=== PATIENT | male | born 1960 ===

== ENCOUNTER 2018-09-07 13:12 | Outpatient (REF) | payer MEDICAID, SELFPAY ==
[2018-09-07 21:46] LABS: HCT 43.7 % (40.0-50.0); HGB 15.2 g/dL (13.5-17.5); Mean Corp. HGB Concentration 34.8 g/dL (32.0-36.0); Mean Corpuscular Hemoglobin 32.3 pg (27.0-33.0); Mean Corpuscular Volume 92.8 fL (80-95); Mean Platelet Volume 10.4 fL (8.0-11.0); Platelet Count 243 x1000/uL (130-400); RBC 4.71 m/cumm (4.50-6.00); White Blood Cell Count 5.44 k/cumm (4.4-10.8)
[2018-09-07 22:06] LABS: Hemoglobin A1C 5.1 % (4.5-6.2)
[2018-09-07 22:34] LABS: ALT 43 U/L (12-78); AST 30 U/L (15-37); Albumin 3.9 g/dL (3.4-5.0); Alkaline Phosphatase 92 U/L (46-116); Anion Gap 10.5 mmol/L (3-11); BUN 15 mg/dL (7-18); Bilirubin, Total 0.7 mg/dL (0.2-1.0); CO2 27.5 mmol/L (21.0-32.0); CREATININE 0.84 mg/dL (0.70-1.30); Calcium 9.2 mg/dL (8.5-10.1); Chloride 105 mmol/L (98-107); Cholesterol 148 mg/dL (50-200); Glucose 96 mg/dL (70-100); HDL Cholesterol 69 mg/dL (40-60); LDL CHOLESTEROL 63 mg/dL (<100); Potassium 4.1 mmol/L (3.5-5.1); Sodium 143 mmol/L (136-145); TSH (W/Ref FT4) 1.14 uIU/mL (0.358-3.74); Triglyceride 118 mg/dL (30-150); Vitamin B12 289 pg/mL (193-986); Vitamin D 25 Total 21.8 ng/ml (30-100)
== END 2018-09-07 13:32 ==
LOC: NCHCN 13:12
PROVIDERS: PCP Family Medicine; Visit Provider Family Medicine
DX: R25.9 Unspecified abnormal involuntary movements (principal); F32.9 Major depressive disorder, single episode, unspecified; E66.3 Overweight
CPT/HCPCS: 80053; 80061; 82306; 83721; 85027; 82607; 83036; 84443

== ENCOUNTER 2018-09-20 15:49 | Outpatient (REF) | payer MEDICAID, SELFPAY ==
[2018-09-20 22:09] LABS: Anion Gap 6.5 mmol/L (3-11); BUN 12 mg/dL (7-18); CO2 31.5 mmol/L (21.0-32.0); CREATININE 0.87 mg/dL (0.70-1.30); Calcium 9.2 mg/dL (8.5-10.1); Chloride 103 mmol/L (98-107); Glucose 84 mg/dL (70-100); Potassium 4.1 mmol/L (3.5-5.1); Sodium 141 mmol/L (136-145)
[2018-10-02 08:54] LABS: Misc Referral (MAYO) See Comments
== END 2018-09-20 16:09 ==
LOC: NCHCN 15:49
PROVIDERS: PCP Family Medicine; Visit Provider Family Medicine
DX: R25.9 Unspecified abnormal involuntary movements (principal); I10 Essential (primary) hypertension; E53.9 Vitamin B deficiency, unspecified; E55.9 Vitamin D deficiency, unspecified; R41.81 Age-related cognitive decline; F32.9 Major depressive disorder, single episode, unspecified; E66.3 Overweight; Z82.0 Family history of epilepsy and other diseases of the nervous system
CPT/HCPCS: 80048; 81271

== ENCOUNTER 2018-10-04 14:54 | Outpatient (REF) | payer MEDICAID, SELFPAY ==
[2018-10-04 21:45] LABS: Anion Gap 6.8 mmol/L (3-11); BUN 23 mg/dL (7-18); CO2 31.2 mmol/L (21.0-32.0); CREATININE 0.91 mg/dL (0.70-1.30); Calcium 9.3 mg/dL (8.5-10.1); Chloride 102 mmol/L (98-107); Glucose 93 mg/dL (70-100); Potassium 4.4 mmol/L (3.5-5.1); Sodium 140 mmol/L (136-145)
== END 2018-10-04 15:14 ==
LOC: NCHCN 14:54
PROVIDERS: PCP Family Medicine; Visit Provider Family Medicine
DX: I10 Essential (primary) hypertension (principal)
CPT/HCPCS: 80048

== ENCOUNTER 2021-02-10 17:14 | Outpatient (REF) | payer MEDICARE, MEDICAID, SELFPAY ==
[2021-02-10 14:13] LABS: ALT 47 U/L (16-63); AST 26 U/L (15-37); Albumin 3.9 g/dL (3.4-5.0); Alkaline Phosphatase 108 U/L (46-116); Anion Gap 9.1 mmol/L (3-11); BUN 12 mg/dL (7-18); Bilirubin, Total 0.5 mg/dL (0.2-1.0); CO2 31.9 mmol/L (21.0-32.0); CREATININE 1.2 mg/dL (0.70-1.30); Chloride 106 mmol/L (98-107); Glucose 100 mg/dL (74-106); Potassium 3.8 mmol/L (3.5-5.1); Sodium 147 mmol/L (136-145); Total Protein 6.7 g/dL (6.4-8.2); Vitamin B12 1645 pg/mL (193-986)
[2021-02-10 18:46] LABS: Vitamin D 25 Total 44.7 ng/mL (30-100)
== END 2021-02-10 17:15 | disposition home or self-care (01) ==
LOC: NCHCN 17:14
PROVIDERS: PCP Family Medicine; Visit Provider Family Medicine
DX: I10 Essential (primary) hypertension (principal); E55.9 Vitamin D deficiency, unspecified; E53.8 Deficiency of other specified B group vitamins; B35.1 Tinea unguium
CPT/HCPCS: 80053; 82306; 82607

== ENCOUNTER 2022-10-29 17:14 | Outpatient (REF) | payer MEDICARE, MEDICAID, SELFPAY ==
[2022-10-29 16:16] LABS: Anion Gap 6.5 mmol/L (3-11); BUN 19 mg/dL (7-18); CO2 31.5 mmol/L (21.0-32.0); CREATININE 1.3 mg/dL (0.70-1.30); Calcium 9.3 mg/dL (8.5-10.1); Calculated LDL 93 mg/dL (<100); Chloride 104 mmol/L (98-107); Cholesterol 158 mg/dL (<200); Glucose 93 mg/dL (74-106); HDL Cholesterol 50 mg/dL (40-60); Potassium 3.9 mmol/L (3.5-5.1); Sodium 142 mmol/L (136-145); Triglyceride 77 mg/dL (<150); Vitamin B12 1182 pg/mL (193-986)
[2022-10-29 16:54] LABS: Vitamin D 25 Total 33.9 ng/mL (30-100)
[2022-10-29 23:28] LABS: PSA, Screening 0.7 ng/mL (<=4.5)
== END 2022-10-29 17:15 | disposition home or self-care (01) ==
LOC: NCHCN 17:14
PROVIDERS: PCP Family Medicine; Visit Provider Family Medicine
DX: I10 Essential (primary) hypertension (principal); E55.9 Vitamin D deficiency, unspecified; E53.8 Deficiency of other specified B group vitamins; Z12.5 Encounter for screening for malignant neoplasm of prostate
CPT/HCPCS: 80048; 80061; 82306; 84153; 82607

== ENCOUNTER 2023-10-21 12:51 | Outpatient (REF) | payer MEDICARE, MEDICAID, SELFPAY ==
[2023-10-21 15:56] LABS: Anion Gap 9.7 mmol/L (3-11); BUN 24 mg/dL (7-18); CO2 28.3 mmol/L (21.0-32.0); Calcium 8.7 mg/dL (8.5-10.1); Chloride 105 mmol/L (98-107); Glucose 90 mg/dL (74-106); Potassium 4.4 mmol/L (3.5-5.1); Sodium 143 mmol/L (136-145)
[2023-10-21 17:07] LABS: Vitamin D 25 Total 81.7 ng/mL (30-100)
[2023-10-21 23:02] LABS: PSA, Screening 0.6 ng/mL (<=4.5)
== END 2023-10-21 12:52 | disposition home or self-care (01) ==
LOC: NCHCN 12:51
PROVIDERS: PCP Family Medicine; Referring Provider Family Medicine; Visit Provider Family Medicine
DX: I10 Essential (primary) hypertension (principal); E55.9 Vitamin D deficiency, unspecified; Z12.5 Encounter for screening for malignant neoplasm of prostate
CPT/HCPCS: 80048; 82306; 84153